=== PATIENT | male | born 1975 | race Caucasian/White ===

== ENCOUNTER 2020-10-27 11:29 | Emergency (ER) | payer OTHER ==
[~2020-10-27] VITALS: Ht 157.5 cm; Wt 96.2 kg
[~2020-10-27 11:29] MED LIST: ALBU0.0967 IH; ATI.5 PO; HYDROCHLOROTHIAZIDE; PAX10 PO
[2020-10-27 11:53] VITALS: BP 166/88
--- NOTE | 2020-10-27 12:00 | NUR ---
PT C/O UTI SX OF FREQUENCY AND URGENCY OF URINATION. PT ALSO C/O PAIN ON THE LOWER ABDOMEN. DENIES BURNING SENSATION OF URINATION, DYSURIA, OR HEMATURIA. DENIES FEVER, COUGH, SOB, N/V/D, OR SICK CONTACT. PMH: PRE-DIABETES
[2020-10-27] MEDS ORDERED: cefTRIAXone 250 MG in LIDOCAINE MPF 1% 0.9 ML IM ONE (12:50)
[2020-10-27] MEDS ORDERED: AZITHROMYCIN 250 MG TAB PO ONE (12:50)
--- NOTE | 2020-10-27 13:24 | NUR ---
PT TAKEN TO [facility].
[2020-10-27 13:46] LABS: APPEARANCE,URINE CLEAR (CLEAR); BILIRUBIN,URINE NEGATIVE (NEGATIVE); BLOOD, URINE NEGATIVE (NEGATIVE); COLOR,URINE YELLOW (YELLOW); LEUKOCYTE ESTERASE ,URINE NEGATIVE (NEGATIVE); NITRITE, URINE NEGATIVE (NEGATIVE); UGLUCOSE NEGATIVE (NEGATIVE)
[2020-10-27] MEDS ORDERED: cefTRIAXone 250 MG VIAL ONE (13:53)
[2020-10-27] MEDS ORDERED: AZITHROMYCIN 250 MG TAB ONE (13:53)
[2020-10-27] MEDS ORDERED: LIDOCAINE MPF 1% 5 ML ONE (13:54)
[2020-10-27 14:00] VITALS: BP 155/79
--- NOTE | 2020-10-27 14:00 | NUR ---
Patient discharged with v/s stable. Written and verbal after care instructions given and explained. Patient verbalized understanding. Ambulatory with steady gait. All questions addressed prior to discharge. Advised to follow up with PMD.
== END 2020-10-27 14:00 | disposition home or self-care (01) ==
LOC: MED 11:29
DX: R35.0 Frequency of micturition (principal); Z20.2 Contact with and (suspected) exposure to infections with a predominantly sexual mode of transmission; J45.909 Unspecified asthma, uncomplicated; I10 Essential (primary) hypertension; Z79.899 Other long term (current) drug therapy
CPT/HCPCS: 81003; 96372; 99283; J0696; J2001; 81002

== ENCOUNTER 2021-10-08 13:13 | Emergency (ER) | payer OTHER ==
[~2021-10-08] VITALS: Ht 157.5 cm; Wt 94.3 kg
[2021-10-08 13:28] VITALS: BP 139/83
[2021-10-08 14:33] LABS: BASOPHILS # (AUTO) 0.1 K/uL (0.00-0.22); BASOPHILS % (AUTO) 0.6 % (0.0-2.0); EOSINOPHILS # (AUTO) 0.4 K/uL (0-0.4); EOSINOPHILS % (AUTO) 4.2 % (0.0-4.0); HEMATOCRIT 43.8 % (36-52); HEMOGLOBIN 14.7 g/dL (12.0-18.0); LYMPHOCYTES # (AUTO) 3.2 K/uL (2.0-11.5); LYMPHOCYTES % (AUTO) 29.7 % (20.5-51.1); MEAN CORPUSCULAR HEMOGLOBIN 28 pg (27-31); MEAN CORPUSCULAR HGB CONC 34 g/dL (33-37); MEAN CORPUSCULAR VOLUME 82.8 fL (80-94); MONOCYTES # (AUTO) 0.7 K/uL (0.8-1.0); MONOCYTES % (AUTO) 6.8 % (1.7-9.3); NEUTROPHILS # (AUTO) 6.3 K/uL (1.8-7.7); NEUTROPHILS % (AUTO) 58.7 % (42.2-75.2); PLATELET COUNT (AUTO) 220 K/uL (140-450); RED BLOOD CELL COUNT(AUTO) 5.28 MIL/uL (4.20-6.10); RED CELL DISTRIBUTION WIDTH 13.6 % (11.6-13.7); WHITE BLOOD COUNT (AUTO) 10.7 K/uL (4.8-10.8)
[2021-10-08 14:47] LABS: ANION GAP 14.3 (8-16); CREATININE 0.7 mg/dL (0.6-1.3); POTASSIUM 4.3 mmol/L (3.5-5.1); TOTAL BILIRUBIN 0.3 mg/dL (0.0-1.0)
--- NOTE | 2021-10-08 15:21 | NUR ---
PT AMBULATED TO ER BED 8 WITH STEADY GAIT
--- NOTE | 2021-10-08 15:37 | NUR ---
DR HERRERA AT BEDSIDE REEVALUATING PT
--- NOTE | 2021-10-08 16:02 | NUR ---
COVLUNA AWA SWAB DONE AND IN THE LAB.
--- NOTE | 2021-10-08 16:09 | NUR ---
LAB AT BEDSIDE.
--- NOTE | 2021-10-08 16:09 | NUR ---
46 Y/O M C/O R SIDED CHEST PAIN 2/10 AND WORSE WITH INHALATION. PT ALSO HAD CIARRHEA THIS MORNING. FUAD HX: ASTHMA
[2021-10-08 17:10] VITALS: BP 122/78
== END 2021-10-08 17:12 | disposition home or self-care (01) ==
LOC: MED 13:13
DX: R07.9 Chest pain, unspecified (principal); Z20.822 Contact with and (suspected) exposure to COVID-19; I10 Essential (primary) hypertension; Z79.899 Other long term (current) drug therapy; J45.909 Unspecified asthma, uncomplicated; Z79.51 Long term (current) use of inhaled steroids
CPT/HCPCS: 36415; 71045; 80053; 83690; 83880; 84484; 85025; 85379; 93005; 99285